=== PATIENT | female | born 1980 | race Caucasian/White ===

== ENCOUNTER 2021-09-06 17:01 | Emergency (ER) | payer MEDICAID ==
[~2021-09-06] VITALS: Ht 152.4 cm; Wt 96.2 kg
[2021-09-06 18:09] VITALS: BP 134/72
--- NOTE | 2021-09-06 21:24 | NUR ---
CALLED FOR DC NO ANSWER.
[2021-09-06 21:28] LABS: UGLUCOSE NEGATIVE (NEGATIVE)
[2021-09-06 21:29] LABS: BILIRUBIN,URINE NEGATIVE (NEGATIVE); BLOOD, URINE 3+ (NEGATIVE)
[2021-09-06 21:30] LABS: APPEARANCE,URINE CLEAR (CLEAR); COLOR,URINE YELLOW (YELLOW); LEUKOCYTE ESTERASE ,URINE NEGATIVE (NEGATIVE); NITRITE, URINE NEGATIVE (NEGATIVE)
[2021-09-06 21:31] LABS: PH,URINE 6.5 (5.0-9.0)
[2021-09-06 21:33] VITALS: BP 134/72
--- NOTE | 2021-09-06 21:33 | NUR ---
Patient discharged with v/s stable. Written and verbal after care instructions given and explained. Patient verbalized understanding. Ambulatory with steady gait. All questions addressed prior to discharge. Advised to follow up with PMD. LEFT WITHOUT PAPER WORK.
== END 2021-09-06 21:33 | disposition home or self-care (01) ==
LOC: MED 17:01
DX: O03.9 Complete or unspecified spontaneous abortion without complication (principal)
CPT/HCPCS: 36415; 76817; 81003; 81025; 84702; 87086; 99284; Q0092